=== PATIENT | female | born 1945 | race Native Hawaiian/Other Pacific Islander ===

== ENCOUNTER 2019-09-11 17:14 | Outpatient (CLI) | payer OTHER ==
[2019-09-11 17:58] LABS: PLATELET COUNT 218 K/uL (152-353)
[2019-09-11 18:33] LABS: POTASSIUM 3.8 mmol/L (3.6-5.2)
== END 2019-09-11 19:15 | disposition home or self-care (01) ==
LOC: LAB 17:14
PROVIDERS: Nurse Practitioner Family
DX: Z00.00 Encounter for general adult medical examination without abnormal findings (principal); E78.49 Other hyperlipidemia; I10 Essential (primary) hypertension; Z12.31 Encounter for screening mammogram for malignant neoplasm of breast; Z79.899 Other long term (current) drug therapy
CPT/HCPCS: 80053; 80061; 82306; 82607; 83036; 84439; 84443; 85027

== ENCOUNTER 2019-09-20 13:05 | Outpatient (CLI) | payer OTHER | END 2019-09-20 23:31 | disposition home or self-care (01) | LOC: MAMMO 13:05 | DX: Z12.31 Encounter for screening mammogram for malignant neoplasm of breast (principal) ==

== ENCOUNTER 2020-05-06 10:16 | Emergency (ER) | payer OTHER ==
[~2020-05-06] VITALS: Ht 157.5 cm; Wt 88.9 kg
[2020-05-06 12:25] VITALS: BP 165/79; TEMP 98.3
== END 2020-05-06 12:25 | disposition home or self-care (01) ==
LOC: ED 10:16
DX: M79.18 Myalgia, other site (principal); V47.0XXA Car driver injured in collision with fixed or stationary object in nontraffic accident, initial encounter; Y92.89 Other specified places as the place of occurrence of the external cause
CPT/HCPCS: 99283

== ENCOUNTER 2020-07-08 10:11 | Outpatient (CLI) | payer OTHER | END 2020-07-08 19:16 | disposition home or self-care (01) | LOC: RAD 10:11 | DX: M25.511 Pain in right shoulder (principal) ==

== ENCOUNTER 2020-09-24 15:02 | Outpatient (CLI) | payer OTHER | END 2020-09-24 20:27 | disposition home or self-care (01) | LOC: MAMMO 15:02 | DX: Z12.31 Encounter for screening mammogram for malignant neoplasm of breast (principal) ==

== ENCOUNTER 2021-09-09 10:24 | Outpatient (CLI) | payer OTHER | END 2021-09-09 19:36 | disposition home or self-care (01) | LOC: RAD 10:24 | PROVIDERS: ATTEND Nurse Practitioner Family | DX: M25.472 Effusion, left ankle (principal); M25.572 Pain in left ankle and joints of left foot ==

== ENCOUNTER 2021-09-26 09:21 | Outpatient (CLI) | payer OTHER | END 2021-09-26 21:02 | disposition home or self-care (01) | LOC: MAMMO 09:21 | PROVIDERS: ATTEND Nurse Practitioner Family | DX: Z12.31 Encounter for screening mammogram for malignant neoplasm of breast (principal) ==

== ENCOUNTER 2022-04-16 12:04 | Outpatient (CLI) | payer OTHER | END 2022-04-16 21:19 | disposition home or self-care (01) | LOC: RAD 12:04 | PROVIDERS: ATTEND Nurse Practitioner Family | DX: M25.511 Pain in right shoulder (principal) ==

== ENCOUNTER 2022-07-18 08:04 | Emergency (ER) | payer OTHER ==
[~2022-07-18] VITALS: Ht 157.5 cm; Wt 93.9 kg
[2022-07-18 09:00] LABS: PLATELET COUNT 131 K/uL (152-353)
[2022-07-18 09:05] LABS: POTASSIUM 3.7 mmol/L (3.6-5.2)
[2022-07-18 09:51] VITALS: BP 187/80; TEMP 97.5
== END 2022-07-18 09:50 | disposition home or self-care (01) ==
LOC: ED 08:04
PROVIDERS: Emergency Medicine
DX: B34.9 Viral infection, unspecified (principal); U07.1 COVID-19; I10 Essential (primary) hypertension
CPT/HCPCS: 36415; 80053; 84484; 85027; 87635; 87651; 93005; 99283; U0003

== ENCOUNTER 2022-09-28 11:26 | Outpatient (CLI) | payer OTHER | END 2022-09-28 19:34 | disposition home or self-care (01) | LOC: MAMMO 11:26 | PROVIDERS: ATTEND Nurse Practitioner Family | DX: Z12.31 Encounter for screening mammogram for malignant neoplasm of breast (principal) ==

== ENCOUNTER 2022-12-15 08:32 | Outpatient (CLI) | payer OTHER | END 2022-12-15 19:14 | disposition home or self-care (01) | LOC: US 08:32 | PROVIDERS: ATTEND Nurse Practitioner Family | DX: M54.2 Cervicalgia (principal); R22.1 Localized swelling, mass and lump, neck ==